=== PATIENT | male | born 1955 | race Hispanic/Latino ===

== ENCOUNTER 2019-06-10 12:52 | Day surgery (SDC) | payer BC ==
[~2019-06-10 12:52] MED LIST: OMNIPAQUE (300 MG) IR ONE
[2019-06-10] MEDS ORDERED: VERSED IV NR (14:15)
[2019-06-10] MEDS ORDERED: LACTATED RINGERS 1,000 ML IV SCH (14:15)
[2019-06-10] MEDS ORDERED: LACTATED RINGERS 1,000 ML ONE (14:30)
[2019-06-10] MEDS ORDERED: XYLOCAINE MPF 2% ONE (14:56)
[2019-06-10] MEDS ORDERED: DIPRIVAN 10 MG/ML IV ONE ×2 (14:56→15:43)
[2019-06-10] MEDS ORDERED: ZOFRAN ONE (14:56)
[2019-06-10] MEDS ORDERED: DECADRON ONE (14:56)
[2019-06-10] MEDS ORDERED: SUBLIMAZE ONE ×4 (14:56→17:16)
[2019-06-10] MEDS ORDERED: ANCEF/STERILE WATER 2 GM/20 ML IV NR (15:00)
[2019-06-10] MEDS ORDERED: OMNIPAQUE (300 MG) IR ONE (15:35)
[2019-06-10] MEDS ORDERED: Vasostrict ONE (15:45)
[2019-06-10] MEDS ORDERED: SUBLIMAZE IV PRN (16:00)
--- NOTE | 2019-06-10 16:00 | Anesthesia Consultation ---
Anesthesia Consult and Med Hx Date of service: 06/10/19 - Airway Anesthetic Teeth Evaluation: Good ROM Head & Neck: Adequate Mental/Hyoid Distance: Adequate Mallampati Class: Class I Intubation Access Assessment: Good - Pulmonary Exam CTA: Yes - Cardiac Exam Cardiac Exam: RRR - Pre-Operative Health Status ASA Pre-Surgery Classification: ASA2 Proposed Anesthetic Plan: General - Pulmonary Hx Smoking: No Hx Sleep Apnea: No (SHONDA PRE SCREEN HIGH RISK) - Cardiovascular System Hx Hypertension: Yes (took losartan this morning) Hx Heart Attack/AMI: No - Central Nervous System CVA: No - Gastrointestinal Hx Gastroesophageal Reflux Disease: Yes (well controlled) - Endocrine Hx Renal Disease: No Hx Liver Disease: No Hx Non-Insulin Dependent Diabetes: Yes Hx Thyroid Disease: No - Other Systems Hx Cancer: Yes (SKIN CANCER- REMOVED 8 YRS AGO)
--- NOTE | 2019-06-10 16:00 | Anesthesia Day of Surgery ---
Anesthesia Day of Surgery - Day of Surgery Patient Examined: Yes Patient H&P Reviewed: Yes Patient is NPO: Yes
--- NOTE | 2019-06-10 17:31 | Short Stay Summary ---
Short Stay Documentation Date of service: 06/10/19 - History H&P: obtained from office - Allergies and Medications Current Medications: Allergies oxycodone Allergy (Verified 06/03/19 15:30) Hives Home Medications Medication Instructions Recorded Confirmed Last Taken Type Meloxicam [Mobic] 15 mg PO PRN PRN 06/03/19 06/10/19 06/09/19 10:00 History Losartan/Hydrochlorothiazide 1 each PO BID 06/10/19 06/10/19 06/10/19 10:00 H istory [Losartan-Hctz 100-25 mg Tab] Metformin HCl [metFORMIN] 1,000 mg PO BID 06/10/19 06/10/19 06/09/19 21:00 History Potassium Chloride [Klor-Con 8] 20 meq PO QDAY 06/10/19 06/10/19 06/09/19 10:00 History Simvastatin 40 mg PO QDAY 06/10/19 06/10/19 06/09/19 10:00 History Tamsulosin [Flomax] 0.4 mg PO QDAY 06/10/19 06/10/19 06/09/19 10:00 History Active Medications Cefazolin Sodium (Ancef/Sterile Water 2 Gm/20 Ml) 2 gm IV PREOP NR Stop: 06/10/19 23:59 Fentanyl (Sublimaze) 50 mcg IV Q5MIN PRN PRN Reason: Pain , Severe (7-10) Stop: 06/10/19 23:59 Lactated Ringer's (Lactated Ringers) 1,000 mls @ 75 mls/hr IV DIRECT LUCERO Last Admin: 06/10/19 14:30 Dose: 75 mls/hr Documented by: Midazolam HCl (Versed) 2 mg IV PREOP NR Stop: 06/10/19 23:59 Last Admin: 06/10/19 14:54 Dose: 2 mg Documented by: - Brief post op/procedure progress note Date of procedure: 06/10/19 Pre-op diagnosis: bladder stones ---large volume, left ureteral stone Procedure: cysto, rpg, left ureteroscopy, holium laser bladder stones, stent with string external Surgeon: DAVE CHRISTOPHER Estimated blood loss: minimal Condition: stable - Hospital course Hospital course: bactrim,dilaudid, ultram on chart - Disposition Condition at discharge: Stable Disposition: DC-01 TO HOME OR SELFCARE Short Stay Discharge Plan Follow up with: JCARLOS CAREY [Other] - 7 Days
[2019-06-10 18:47] VITALS: BP 149/91
[2019-06-10] MEDS ORDERED: QUELICIN ONE (19:00)
[2019-06-10] MEDS ORDERED: HumuLIN R ONE (19:07)
--- NOTE | 2019-06-10 19:42 | Fluoroscopy Report ---
CLINICAL INDICATION: Multiple bladder stones. TECHNICAL DATA: Fluoroscopy time 0.7 minutes and3 KUB images were obtained FINDINGS: Initial image demonstrates a guidewire in the left collecting system. Double pigtail stent placed lef t ureter. IMPRESSION: Double pigtail stent placement left ureter Signer Name: Kb Velez MD Signed: 06/10/2019 7:38 PM Workstation Name: [id number]
--- NOTE | 2019-06-10 20:00 | Fluoroscopy Report ---
Retrograde ureterogram INDICATION: Bladder calculi Fluoroscopy time 0.7 minutes, 9 images Study documents procedure in conjunction with radiology personnel. The left ureter was cannulated and injection of contrast shows good filling to the calyceal system without obstruction without definite calculus though left stone extraction was performed during the procedure according to the technologi st. A wire was placed and a left ureteral stent was positioned appropriately. Injection of the right ureter on one image shows only the extreme distal ureter. Multiple bladder calculi are seen which lesia ear to have been removed during the study and are not seen on later images. Signer Name: Davy Cuellar MD Signed: 06/10/2019 7:55 PM Workstation Name: [id number]
--- NOTE | 2019-06-12 12:47 | Operative Report ---
PREOPERATIVE DIAGNOSES: Left ureteral stone, multiple bladder stones. POSTOPERATIVE DIAGNOSES: Left ureteral stone, multiple bladder stones (large volume bladder stones). PROCEDURES: Cystoscopy, bilateral retrograde pyelograms, left ureteroscopy, holmium laser lithotripsy of large volume bladder stones. SURGEON: Harsha Escobedo MD ANESTHESIA: General. ESTIMATED BLOOD LOSS: Minimal. FLUIDS: Crystalloid. COMPLICATIONS: No complications. INDICATIONS: This patient is a 63-year-old gentleman with history of stones in the past. He has relocated from [place]. He brought in the office in several stones for analysis. We also ordered a Litholink. CT of abdomen and pelvis on June 05 revealed a 5 mm left renal stone and multiple stones in the bladder. The patient did not have the disk and it was not clear what was the stone burden in the bladder. Risks, benefits and complications were explained. The patient agreed to proceed with surgical intervention. DESCRIPTION OF PROCEDURE: The patient was taken to the operative suite, placed in a supine position. After adequate general anesthesia, placed in a dorsal lithotomy position, prepped and draped in a sterile fashion. Crop Setting Out Machine Operator film was negative. Cystourethroscopy was performed with 22-Ar[place] Storz cystoscope, no urethral abnormalities. His prostate was minimally obstructing his bladder. He had what appeared to be six large, approximately at least 1 cm in diameter stones in the bladder. Bilateral retrograde pyelograms were obtained with an 8 [place] Leidy catheter and 8 mL of contrast. No filling defects or obstruction on the right. Left side, there was a question of filling defect, prompting ureteroscopy. Two 0.035 Glidewires were placed. Ureteroscopy to the renal pelvis was performed. No stone could be appreciated. A 6-Argentine 24 cm double-J stent with an external string was left indwelling. Next, at this time using a 500 micron holmium fiber, laser lithotripsy of the bladder stones was performed, started at 4 pérez and up to 10 pérez. After 3 fibers we were able to break up all the stones. Brenna evacuator was used to evacuate out the fragments. Some of the fragments were given to the patient. I will send them for analysis as well. Bladder was clear. Stent in good position. Bladder was drained. A cystogram was performed. No leak. No extravasation. He was extubated and taken to recovery room. Rectal exam was benign. He will follow up in the office. JOB# [id number] [facility]
== END 2019-06-10 12:53 | disposition home or self-care (01) ==
LOC: OR 12:52
PROVIDERS: ATTEND Urology
DX: N21.0 Calculus in bladder (principal); N20.1 Calculus of ureter; E78.00 Pure hypercholesterolemia, unspecified; I10 Essential (primary) hypertension; K21.9 Gastro-esophageal reflux disease without esophagitis; M19.90 Unspecified osteoarthritis, unspecified site; E11.9 Type 2 diabetes mellitus without complications; Z85.89 Personal history of malignant neoplasm of other organs and systems; Z98.890 Other specified postprocedural states
CPT/HCPCS: 52318; 52332; 74420; 82962; C1758; C1769; C2617; J0330; J1100; J2250; J2405; J2704; J3010; J7120; Q9967; 74430; J1815